=== PATIENT | female | born 1960 | race Caucasian/White ===

== ENCOUNTER → 2022-10-09 | Outpatient (CLI) | payer OTHER ==
[~2022-10-09] MED LIST: ACE65ERTAB PO; CIPR-249 PO; METR-265 PO
== END ==
LOC: M RAD 15:12
PROVIDERS: ATTEND Nurse Practitioner Family
DX: M25.18 Fistula, other specified site (principal); K57.30 Diverticulosis of large intestine without perforation or abscess without bleeding; R14.0 Abdominal distension (gaseous); K76.0 Fatty (change of) liver, not elsewhere classified; R93.3 Abnormal findings on diagnostic imaging of other parts of digestive tract

== ENCOUNTER 2022-10-11 08:08 | Emergency (ER) | payer OTHER ==
[~2022-10-11] VITALS: Ht 152.4 cm; Wt 90.6 kg
[2022-10-11] MEDS ORDERED: ACE65ERTAB PO (08:26)
[2022-10-11 09:18] LABS: BASO # 0.1 10^3/uL (0.0-0.2); BASO % 0.6 % (0.0-1.0); EOS # 0.1 10^3/uL (0.0-0.5); EOS % 1.4 % (0.0-3.0); HEMATOCRIT 41.6 % (36.0-47.0); HEMOGLOBIN 13.3 g/dl (12.0-15.5); LYMPH # 1.8 10^3/uL (1.5-5.0); LYMPH % 21.3 % (24.0-44.0); MEAN CORPUSCULAR VOLUME 90.6 fl (80.0-96.0); MONO # 0.7 10^3/uL (0.0-0.8); MONO % 7.8 % (2.0-8.0); NEUTROPHILS # 5.8 10^3/uL (1.5-8.5); NEUTROPHILS % 68.5 % (36.0-66.0); PLATELET COUNT, AUTOMATED 223 10^3/uL (150-450); RED BLOOD COUNT 4.59 10^6/uL (4.00-5.40); WHITE BLOOD COUNT 8.4 10^3/uL (4.0-10.0)
[2022-10-11 09:33] LABS: LIPASE 50 U/L (12-53)
[2022-10-11 09:35] LABS: ALBUMIN 3.4 G/DL (3.2-5.2); ALKALINE PHOSPHATASE 55 U/L (46-116); ALT/SGPT 15 U/L (7.0-40); AST/SGOT 10 U/L (<34); BILIRUBIN,DIRECT 0.2 MG/DL (<0.4); BILIRUBIN,TOTAL 0.6 MG/DL (0.3-1.2); BLOOD UREA NITROGEN 10 MG/DL (9-23); CALCIUM LEVEL 9.2 MG/DL (8.3-10.6); CARBON DIOXIDE LEVEL 28 MMOL/L (20-31); CHLORIDE LEVEL 107 MMOL/L (98-107); GLOMERULAR FILTRATION RATE > 60.0 (>45); GLUCOSE, FASTING 84 MG/DL (74-106); SODIUM LEVEL 141 MMOL/L (136-145); TOTAL PROTEIN 6.4 G/DL (5.7-8.2)
[2022-10-11] MEDS ORDERED: CIPROFLOXACIN 500MG TABLET PO ONE (09:50)
[2022-10-11] MEDS ORDERED: metroNIDAZOLE (FLAGYL) 500MG TABLET PO ONE (09:50)
[2022-10-11] MEDS ORDERED: CIPR-249 PO (09:51)
[2022-10-11] MEDS ORDERED: METR-265 PO (09:51)
[2022-10-11 09:52] LABS: INR 0.88; PROTHROMBIN TIME 12.1 SECONDS (12.5-14.5)
[2022-10-11 09:53] LABS: PARTIAL THROMBOPLASTIN TIME 27.5 SECONDS (24.8-34.2)
[2022-10-11 10:01] VITALS: O2SAT 99
[2022-10-11 10:03] VITALS: BP 158/91; TEMP 97.9
== END 2022-10-11 10:14 | disposition home or self-care (01) ==
LOC: M ED 08:08
DX: N32.1 Vesicointestinal fistula (principal); K57.32 Diverticulitis of large intestine without perforation or abscess without bleeding; E78.5 Hyperlipidemia, unspecified; J45.909 Unspecified asthma, uncomplicated; E28.2 Polycystic ovarian syndrome; Z87.442 Personal history of urinary calculi

== ENCOUNTER → 2022-12-15 | Outpatient (CLI) | payer OTHER ==
[~2022-12-15] MED LIST changes: +GASTROGRAFIN SOLUTION 30ML As Ordered ONE; +ISOVUE-370 76% 100ML VIAL As Ordered ONE
== END ==
LOC: M RAD 15:07
PROVIDERS: ATTEND Nurse Practitioner Family
DX: N32.1 Vesicointestinal fistula (principal)
CPT/HCPCS: 74177; Q9963; Q9967